=== PATIENT | female | born 1955 | race Native Hawaiian/Other Pacific Islander ===

== ENCOUNTER 2018-10-07 09:50 | Outpatient (CLI) | payer OTHER | END 2018-10-07 09:51 | disposition home or self-care (01) | LOC: C.LAB 09:50 | DX: I10 Essential (primary) hypertension (principal); E78.00 Pure hypercholesterolemia, unspecified; E03.9 Hypothyroidism, unspecified; E11.9 Type 2 diabetes mellitus without complications ==

== ENCOUNTER → 2018-12-08 | Outpatient (CLI) | payer OTHER | LOC: C.USIC 08:24 | DX: K76.0 Fatty (change of) liver, not elsewhere classified (principal) ==

== ENCOUNTER 2018-12-27 08:08 | Outpatient (CLI) | payer OTHER | END 2018-12-27 08:09 | disposition home or self-care (01) | LOC: C.LAB 08:08 | DX: I10 Essential (primary) hypertension (principal); D64.9 Anemia, unspecified; E78.2 Mixed hyperlipidemia; E11.9 Type 2 diabetes mellitus without complications; M06.9 Rheumatoid arthritis, unspecified ==